=== PATIENT | male | born 1965 | race Caucasian/White ===

== ENCOUNTER 2022-03-25 01:40 | Emergency (ER) | payer MEDICAID, OTHER ==
[~2022-03-25] VITALS: Ht 180.3 cm; Wt 213.6 kg
[2022-03-25] MEDS ORDERED: InsuLIN REG 1unit/0.01ml Soln (100units/ml) IV ONE (02:15)
[2022-03-25] MEDS ORDERED: LACTATED RINGER'S 1,000 ML IV ONE (02:15)
[2022-03-25 02:56] LABS: Nucleated Red Blood Cells % 0.1 %
[2022-03-25 02:57] LABS: Basophils # (auto) 0.1 10 ^3/uL (0-0.2); Basophils % (auto) 0.8 % (0.0-2.0); Eosinophils # (auto) 0.2 10 ^3/uL (0-0.8); Eosinophils % (auto) 1.6 % (0.0-7.0); Hematocrit 40.7 % (36.0-46.0); Hemoglobin 13.5 g/dL (12.2-16.2); Lymphocytes % (auto) 19.2 % (10.0-50.0); Mean Corpuscular Hemoglobin 27.3 pg (28.0-32.0); Mean Corpuscular Hgb Conc. 33.1 g/dL (32.0-36.0); Mean Corpuscular Volume 82.6 fL (80.0-100.0); Monocytes # (auto) 0.7 10 ^3/uL (0-1.3); Monocytes % (auto) 6.6 % (0.0-12.0); Neutrophils # (auto) 7.6 10 ^3/uL (1.6-8.6); Neutrophils % (auto) 71.8 % (37.0-80.0); Red Blood Cells 4.93 10^6/uL (4.0-5.20); Red Cell Distribution Width 15.2 % (11.8-14.3); White Blood Cell 10.6 10^3/uL (4.4-10.8)
[2022-03-25 03:11] LABS: Albumin 3.5 g/dL (3.4-5.0); BUN/Creatinine Ratio 22.2; Calcium 8.9 mg/dL (8.5-10.1)
[2022-03-25 03:14] LABS: Bilirubin, Total 0.6 mg/dL (0.2-1.0); Total Protein 7.7 g/dL (6.4-8.2)
[2022-03-25] MEDS ORDERED: InsuLIN REG 1unit/0.01ml Soln (100units/ml) SC ONE (05:00)
[2022-03-25] MEDS ORDERED: [UNRECOGNIZED DRUG - CODE] PO (05:00)
[2022-03-25 05:43] VITALS: BP 122/79
[2022-03-26] MEDS ORDERED: CANA100T PO (00:35)
== END 2022-03-25 05:44 | disposition home or self-care (01) ==
LOC: EDSEX 01:40 → ER 01:40
DX: E11.65 Type 2 diabetes mellitus with hyperglycemia (principal); E86.0 Dehydration; R79.89 Other specified abnormal findings of blood chemistry; F20.9 Schizophrenia, unspecified; Z88.0 Allergy status to penicillin; Z91.14 Patient's other noncompliance with medication regimen
CPT/HCPCS: 36415; 80053; 80320; 82010; 82962; 83690; 83930; 84484; 85025; 96372; 99283; J1815

== ENCOUNTER 2022-03-25 18:47 | Emergency (ER) | payer MEDICAID, OTHER ==
[~2022-03-25] VITALS: Ht 180.3 cm; Wt 167.7 kg
[~2022-03-25 18:47] MED LIST: [UNRECOGNIZED DRUG - CODE] PO
[2022-03-25] MEDS ORDERED: SODIUM CHLORIDE 0.9% 1,000 ML IV ONE (21:30)
[2022-03-25] MEDS ORDERED: InsuLIN REG 1unit/0.01ml Soln (100units/ml) SC ONE (21:45)
[2022-03-25 22:32] LABS: BUN/Creatinine Ratio 26.5; Calcium 9.5 mg/dL (8.5-10.1)
[2022-03-25 22:35] LABS: Bilirubin, Total 0.7 mg/dL (0.2-1.0); Total Protein 8.2 g/dL (6.4-8.2)
[2022-03-26 00:13] VITALS: BP 144/83
[2022-03-26] MEDS ORDERED: CANA100T PO (00:35)
== END 2022-03-26 00:42 | disposition home or self-care (01) ==
LOC: ER 18:47
DX: E11.65 Type 2 diabetes mellitus with hyperglycemia (principal); Z88.0 Allergy status to penicillin
CPT/HCPCS: 36415; 80053; 82962; 96372; 99283; J1815